=== PATIENT | female | born 1970 ===

== ENCOUNTER 2017-05-08 23:29 | Emergency (ER) | payer MEDICARE, OTHER ==
[2017-05-08 23:29] VITALS: BMI 32.6
[2017-05-08 23:41] VITALS: BP 160/90; PULSE 65; RESP 14; TEMP 97.9; O2SAT 98
--- NOTE | 2017-05-09 | C.PDOC ---
History Of Present Illness 46 year old female who presents to the ER with a complaint of pain and swelling to the left index finger for the past 2-3 days. Patient reports she had a manicure done recently prior to onset of symptoms. Patient states she had tips on her nails which she had removed at the salon; she then began to notice discoloration to the left index finger nail. Denies trauma, drainage, fever, weakness, or numbness. Time Seen by Provider: 05/08/17 23:46 Chief Complaint (Nursing): Finger,Hand,&Wrist History Per: Patient History/Exam Limitations: no limitations Onset/Duration Of Symptoms: Days Current Symptoms Are (Timing): Still Present Recent travel outside of the [place]: No Past Medical History Reviewed: Historical Data, Nursing Documentation, Vital Signs Vital Signs: Last Vital Signs Temp 97.9 F 05/08/17 23:39 Pulse 65 05/08/17 23:39 Resp 14 05/08/17 23:39 BP 160/90 H 05/08/17 23:39 Pulse Ox 98 05/09/17 00:02 - Medical History PMH: Fractures (left ankle) Surgical History: No Surg Hx - [facility] Procedures APPLICATION OF SPLINT (10/19/14) Family History: States: Unknown Family Hx - Social History Hx Tobacco Use: No Hx Alcohol Use: No - Immunization History Hx Tetanus Toxoid Vaccination: No Hx Influenza Vaccination: No Hx Pneumococcal Vaccination: No Review Of Systems Musculoskeletal: Positive for: Hand Pain Neurological: Negative for: Weakness, Numbness Physical Exam - Physical Exam Appears: Non-toxic, No Acute Distress Skin: Warm, Dry Head: Atraumatic, Normacephalic Oral Mucosa: Moist Extremity: Normal ROM (x4), Other (Discoloration of left index nail with dryness. Minimal erythema and swelling to base of nail bed. No fluctuance or proximal streaking.) Pulses: Left Radial: Normal, Right Radial: Normal Neurological/Psych: Oriented x3, Normal Speech, Normal Cognition ED Course And Treatment O2 Sat by Pulse Oximetry: 98 (Room air) Pulse Ox Interpretation: Normal Progress Note: Patient give Rx and discharged home with instructions to follow up with PMD. Disposition Counseled Patient/Family Regarding: Diagnosis, Need For Followup - Disposition Referrals: Karoline Deluca MD [Medical Doctor] - Disposition: HOME/ ROUTINE Disposition Time: 23:58 Condition: STABLE Additional Instructions: Please follow up with PMD Apply warm compress Take meds as directed Return to ER if drainage, moderate swelling, or pain or worse Prescriptions: Cephalexin [cephalexin] 500 mg PO QID #28 cap Naproxen [Naprosyn] 1 tab PO BID PRN #20 tab PRN Reason: Pain Instructions: Paronychia (ED) Forms: [facility] (Central African), Work Excuse - Clinical Impression Clinical Impression: Paronychia of finger of left hand - Scribe Statement The provider has reviewed the documentation as recorded by the Scribelizabeth Zhong All medical record entries made by the Saeibelizabeth were at my direction and personally dictated by me. I have reviewed the chart and agree that the record accurately reflects my personal performance of the history, physical exam, medical decision making, and the department course for this patient. I have also personally directed, reviewed, and agree with the discharge instructions and disposition.
[2017-05-09] MEDS ORDERED: Naproxen 550 mg Tab PO ONE (00:08)
== END 2017-05-09 00:12 | disposition home or self-care (01) ==
LOC: C.ER 23:29
DX: L03.012 Cellulitis of left finger (principal)

== ENCOUNTER 2018-02-12 09:10 | Emergency (ER) | payer OTHER ==
[2018-02-12 09:28] VITALS: BMI 33.7
[2018-02-12 09:29] VITALS: BP 167/107; PULSE 77; RESP 20; TEMP 98.5; O2SAT 100
--- NOTE | 2018-02-12 11:37 | RAD ---
PROCEDURE: Left Ankle Radiographs. HISTORY: left ankle pain swelling COMPARISON: None FINDINGS: BONES: Normal. No fracture. JOINTS: Normal. No osteoarthritis. Ankle mortise maintained. Talar dome intact SOFT TISSUES: Lateral malleolar soft tissues OTHER FINDINGS: None. IMPRESSION: No fracture or dislocation is suggested. Mild soft tissue swelling in the area of interest is noted.
--- NOTE | 2018-02-12 12:47 | C.PDOC ---
History Of Present Illness 47 y/o female presents to the ED complaining of left ankle pain since yesterday. States that she tripped over something and twisted the ankle. Patient is able to ambulate. Denies knee pain or other injury. No changes in sensation. Time Seen by Provider: 02/12/18 09:48 Chief Complaint (Nursing): Lower Extremity Problem/Injury History Per: Patient History/Exam Limitations: no limitations Onset/Duration Of Symptoms: Days Current Symptoms Are (Timing): Still Present - Ankle/Foot Description Of Injury: Twisted Past Medical History Reviewed: Historical Data, Nursing Documentation, Vital Signs Vital Signs: Last Vital Signs Temp 98.5 F 02/12/18 09:24 Pulse 77 02/12/18 09:24 Resp 20 02/12/18 09:24 BP 167/107 H 02/12/18 09:24 Pulse Ox 100 02/12/18 12:53 - Medical History PMH: Fractures (left ankle) Denies: Chronic Kidney Disease Other Surgeries: Hysterectomy, Cataract surgery - [facility] Procedures APPLICATION OF SPLINT (10/19/14) Family History: States: Unknown Family Hx - Social History Hx Tobacco Use: No Hx Alcohol Use: No Hx Substance Use: No - Immunization History Hx Tetanus Toxoid Vaccination: No Hx Influenza Vaccination: No Hx Pneumococcal Vaccination: No Review Of Systems Except As Marked, All Systems Reviewed And Found Negative. Musculoskeletal: Positive for: Foot Pain (left ankle) Neurological: Negative for: Weakness, Numbness Physical Exam - Physical Exam Appears: Well, Non-toxic, No Acute Distress Skin: Normal Color, Warm, Dry Head: Atraumatic, Normacephalic Eye(s): bilateral: Normal Inspection Oral Mucosa: Moist Neck: Normal ROM, Supple Chest: Symmetrical Extremity: Normal ROM, Tenderness (mild tenderness and swelling to the lateral aspect of left ankle), No Calf Tenderness, Capillary Refill (less than 2 sec), No Deformity Pulses: Left Dorsalis Pedis: Normal, Right Dorsalis Pedis: Normal Neurological/Psych: Oriented x3, Normal Speech, Normal Motor, Normal Sensation Gait: Steady ED Course And Treatment O2 Sat by Pulse Oximetry: 100 (RA) Pulse Ox Interpretation: Normal - Other Rad L ankle X-Ray: Read By Radiologist Interpretation: Accession No. : [id number]. Patient Name / ID : DOE OLIVER / [id number]. Exam Date : 02/12/2018 09:37:21 ( Approved ). Study Comment : Sex / Age : F / 47Y. Creator : Lacey Lentz. Dictator : Lacey Lentz. Software Quality Assurance Specialist : Manufacturing Operations Manager : Lacey Thomas. Approver2 : Report Date : 02/12/2018 11:35:58. My Comment : . PROCEDURE: Left Ankle Radiographs. HISTORY: left ankle pain swelling. COMPARISON: None. FINDINGS: BONES: Normal. No fracture. JOINTS: Normal. No osteoarthritis. Ankle mortise maintained. Talar dome intact. SOFT TISSUES: Lateral malleolar soft tissues. OTHER FINDINGS: None. IMPRESSION: No fracture or dislocation is suggested. Mild soft tissue swelling in the area of interest is noted. Medical Decision Making Medical Decision Making: Impression: Right ankle injury Plan: --X-ray left ankle --Motrin PO X-ray read by me, and is negative. LAUREEN bandage applied. Patient is stable for discharge home. Advised to follow up with PMD for further evaluation. Disposition - Disposition Referrals: [facility] Debo Prado, [Non-Staff] - Disposition: HOME/ ROUTINE Disposition Time: 09:45 Condition: GOOD Additional Instructions: MELODY AZAR, thank you for letting us take care of you today. Your provider was Chavez Gallegos DO and you were treated for LT ANKLE PAIN. The emergency medical care you received today was directed at your acute symptoms. If you were prescribed any medication, please fill it and take as directed. It may take several days for your symptoms to resolve. Return to the Emergency Department if your symptoms worsen, do not improve, or if you have any other problems. Please contact your doctor or call one of the physicians/clinics you have been referred to that are listed on the Patient Visit Information form that is included in your discharge packet. Bring any paperwork you were given at discharge with you along with any medications you are taking to your follow up visit. Our treatment cannot replace ongoing medical care by a primary care provider outside of the emergency department. Thank you for allowing the [facility] team to be part of your care today. Follow up with your primary care doctor in 3-4 days for re-evaluation and further management. Prescriptions: Ibuprofen [Motrin] 600 mg PO Q6 PRN #20 tab PRN Reason: Pain, Moderate (4-7) Instructions: Ankle Sprain (DC) Forms: [facility] (Welsh) - Clinical Impression Clinical Impression: Ankle sprain - Scribe Statement The provider has reviewed the documentation as recorded by the Scribe (Afsaneh Boone) Provider Attestation: All medical record entries made by the Scribe were at my direction and personally dictated by me. I have reviewed the chart and agree that the record accurately reflects my personal performance of the history, physical exam, medical decision making, and the department course for this patient. I have also personally directed, reviewed, and agree with the discharge instructions and disposition.
== END 2018-02-12 10:23 | disposition home or self-care (01) ==
LOC: C.ER 09:10
DX: S93.402A Sprain of unspecified ligament of left ankle, initial encounter (principal); X50.9XXA Other and unspecified overexertion or strenuous movements or postures, initial encounter

== ENCOUNTER 2018-12-10 02:45 | Emergency (ER) | payer MEDICARE, OTHER ==
[2018-12-10 02:45] VITALS: BMI 33.7
[2018-12-10 03:06] VITALS: RESP 16; TEMP 98.4; O2SAT 98
--- NOTE | 2018-12-10 03:30 | C.PDOC ---
History Of Present Illness 48 year old female presents to the ED for evaluation of persistent dry cough which began around 5 days ago. Patient reports occasionally having coughing fits which make her feel like she is about to throw up. Patient has been taking NyQuil and Tylenol without significant relief. She denies fever, chills, chest pain and shortness of breath. Time Seen by Provider: 12/10/18 03:03 Chief Complaint (Nursing): Cough, Cold, Congestion History Per: Patient History/Exam Limitations: no limitations Onset/Duration Of Symptoms: Days, Persistent Current Symptoms Are (Timing): Still Present Associated Symptoms: Cough. denies: Fever, Chills, Sputum Additional History Per: Patient Past Medical History Reviewed: Historical Data, Nursing Documentation, Vital Signs Vital Signs: Last Vital Signs Temp 98.4 F 12/10/18 03:00 Pulse 78 12/10/18 03:00 Resp 16 12/10/18 03:00 BP 174/107 H 12/10/18 03:00 Pulse Ox 98 12/10/18 03:00 - Medical History PMH: Fractures (left ankle) Denies: Chronic Kidney Disease Surgical History: No Surg Hx - [facility] Procedures APPLICATION OF SPLINT (10/19/14) Family History: States: Unknown Family Hx - Social History Hx Tobacco Use: No Hx Alcohol Use: Yes Hx Substance Use: No - Immunization History Hx Tetanus Toxoid Vaccination: No Hx Influenza Vaccination: No Hx Pneumococcal Vaccination: No Review Of Systems Constitutional: Negative for: Fever, Chills, Weakness ENT: Negative for: Mouth Pain Cardiovascular: Negative for: Chest Pain Respiratory: Positive for: Cough. Negative for: Shortness of Breath, Sputum Gastrointestinal: Negative for: Nausea, Vomiting Skin: Negative for: Rash Neurological: Negative for: Weakness, Numbness, Dizziness Physical Exam - Physical Exam Appears: Well, Non-toxic, No Acute Distress Skin: Normal Color, Warm, No Rash Head: Atraumatic, Normacephalic Eye(s): bilateral: Normal Inspection (no scleral icterus ), PERRL, EOMI Ear(s): Bilateral: Normal (no drainage ) Nose: No Discharge, Other (dry mucus in nares ) Oral Mucosa: Moist Throat: Normal (no swelling or injection ), No Exudate, Other (airway patent ) Chest: Symmetrical Respiratory: No Accessory Muscle Use, Other (normal inspiratory effort ) Back: Other (ambulatory with a steady upright gait ) Extremity: Normal ROM Extremity: Bilateral: Atraumatic Neurological/Psych: Oriented x3, Normal Cranial Nerves (grossly intact ) ED Course And Treatment O2 Sat by Pulse Oximetry: 98 (on RA ) Pulse Ox Interpretation: Normal Medical Decision Making Medical Decision Making: Progress: On reassessment, patient is resting comfortably, showing no signs of distress and is stable for discharge. Patient will be given discharge instructions for Bronchospasm, Bronchitis and Rx for Albuterol INH. Advised to f/u with her PMD within 1-2 days for further evaluation. Disposition Counseled Patient/Family Regarding: Diagnosis, Need For Followup, Rx Given - Disposition Disposition: HOME/ ROUTINE Disposition Time: 03:30 Condition: STABLE Prescriptions: Albuterol HFA [Ventolin HFA 90 mcg/actuation (8 g)] 2 puff IH [id number] #1 inhaler Methylprednisolone [Medrol Dose Pack (21 tabs)] 4 mg PO DAILY #21 tab Instructions: Acute Bronchitis, Adult (DC) Forms: General Discharge Instructions, [facility] (Nepalese), Work Excuse - Clinical Impression Clinical Impression: Bronchospasm, Bronchitis - PA / CUSTOMER LEADER / Resident Statement MD/DO has reviewed & agrees with the documentation as recorded. - Scribe Statement The provider has reviewed the documentation as recorded by the Scribe (Naz Delvalle) All medical record entries made by the Scribe were at my direction and personally dictated by me. I have reviewed the chart and agree that the record accurately reflects my personal performance of the history, physical exam, medical decision making, and the department course for this patient. I have also personally directed, reviewed, and agree with the discharge instructions and disposition.
[2018-12-10 03:45] VITALS: BP 141/100; PULSE 65
== END 2018-12-10 03:48 | disposition home or self-care (01) ==
LOC: C.ER 02:45
DX: J98.01 Acute bronchospasm (principal); J40 Bronchitis, not specified as acute or chronic